=== PATIENT | female | born 1980 | race Caucasian/White ===

== ENCOUNTER 2016-08-25 21:25 | Outpatient (CLI) | payer MEDICAID ==
[2016-08-25 21:47] LABS: URINE BILIRUBIN NEGATIVE (NEGATIVE); URINE BLOOD 1+ (NEGATIVE); URINE GLUCOSE (UA) NEGATIVE (NEGATIVE); URINE LEUKOCYTE ESTERASE NEGATIVE (NEGATIVE); URINE NITRITE NEGATIVE (NEGATIVE); URINE PROTEIN NEGATIVE (NEGATIVE); URINE UROBILINOGEN NORMAL (0-1 mg/dl)
[2016-08-25 21:49] LABS: URINE APPEARANCE CLEAR; URINE COLOR DARK YELLOW
[2016-08-25 21:50] VITALS: BMI 27.6
[2016-08-25 22:02] LABS: URINE BACTERIA FEW; URINE CRYSTALS 15-20 /hpf; URINE RBC 0-2 /hpf; URINE WBC NEG /hpf
[2016-08-25] MEDS ORDERED: IV START KIT ONE (22:28)
[2016-08-25] MEDS ORDERED: LACTATED RINGERS 1,000 ML ONE (22:29)
[2016-08-25] MEDS ORDERED: LACTATED RINGERS 1,000 ML IV SCH (22:30)
--- NOTE | 2016-08-25 23:16 | PDOC36 ---
Provider Note Note: SUBJECTIVE: 36 yo at 33 3/7 weeks gestation who has been hansa for the past 2 weeks. Contractions are mild to moderate and are between 2-10 minutes apart. She was seen on 08/20/[address] [facility] and noted to have a negative fibronectin and yeast on a wet prep. She has used OTC monistat since then. OBJECTIVE: VS: 104/66, 97.1F, 59 bpm FHT: 130s, moderate variability, positive accels, negative decels, category I [place]: Contractions every 3-10 minutes SVE: C/T/H LABS: Fibronectin: Negative Wet Prep: Negative ASSESSMENT: 36 yo at 33 3/7 weeks with contractions and negative labs. PLAN: Labs were negative, patient appeared to be a little dehydrated on her UA and was given 1 liter of LR which helped her feel a little better. Contractions improved and she was sent home with routine precautions. FU at her next routine apt.
== END 2016-08-25 23:46 | disposition home or self-care (01) ==
LOC: FBC 21:25 → FBCOUT 21:25
PROVIDERS: ATTEND Family Medicine
DX: O47.03 False labor before 37 completed weeks of gestation, third trimester (principal); O26.893 Other specified pregnancy related conditions, third trimester; E86.0 Dehydration; Z3A.33 33 weeks gestation of pregnancy; O09.523 Supervision of elderly multigravida, third trimester
CPT/HCPCS: 96360; 82731; 81001; 87210; 59025; J7120; G0463

== ENCOUNTER 2016-09-28 20:26 | Outpatient (CLI) | payer MEDICAID ==
[2016-09-28 20:46] VITALS: BMI 27.2
== END 2016-09-28 23:12 | disposition home or self-care (01) ==
LOC: FBC 20:26 → FBCOUT 20:26
PROVIDERS: ATTEND Family Medicine
DX: O36.8190 Decreased fetal movements, unspecified trimester, not applicable or unspecified (principal); O47.9 False labor, unspecified; O09.529 Supervision of elderly multigravida, unspecified trimester; Z3A.00 Weeks of gestation of pregnancy not specified
CPT/HCPCS: 59025; G0463

== ENCOUNTER 2016-10-07 22:27 | Inpatient (IN) | payer MEDICAID ==
[2016-10-07 22:48] VITALS: BMI 29.0
[2016-10-07] MEDS ORDERED: LACTATED RINGERS 1,000 ML IV PRN (23:09)
[2016-10-07] MEDS ORDERED: OXYTOCIN IN NS 334 ML IV PRN (23:09)
[2016-10-07] MEDS ORDERED: OXYTOCIN 10 UNITS/ML VIAL ONE (23:10)
[2016-10-07] MEDS ORDERED: IV START KIT ONE (23:11)
[2016-10-07] MEDS ORDERED: LIDOCAINE 1% (PRES FREE) 30 ML VIAL ONE (23:11)
[2016-10-07] MEDS ORDERED: MINERAL OIL 25 ML BOT ONE (23:11)
[2016-10-07] MEDS ORDERED: LIDOCAINE Viscous 2% 15 ML UDCUP ONE (23:11)
[2016-10-07] MEDS ORDERED: PUMP TUBING ONE (23:11)
[2016-10-08] MEDS ORDERED: MINERAL OIL 25 ML BOT TP ONE (00:44)
[2016-10-08] MEDS ORDERED: LIDOCAINE 1% (PRES FREE) 30 ML VIAL SUB-Q ONE (00:44)
[2016-10-08] MEDS ORDERED: LANOLIN 50 APPLIC/7G TUBE TP PRN (00:53)
[2016-10-08] MEDS ORDERED: LACTATED RINGERS 1,000 ML IV PRN (00:53)
[2016-10-08] MEDS ORDERED: HYDROCODONE/ACETAMINOPHEN 5/325MG TABLET PO PRN (00:53)
[2016-10-08] MEDS ORDERED: BENZOCAINE/MENTHOL 60 APPLIC/BOT TP PRN (00:53)
--- NOTE | 2016-10-08 00:59 | PCMAN ---
OB Admission Note - History : 3 Term: 2 : 0 Abortions (S&E): 0 Livin Gestational Age (weeks): 39 Days (#/7): 4 Admit Cervical Dilation:: 4 Admit Cervical Effacement (%):: 80 Admit Station:: -2 Admit Presentaton:: vertex Membrane Status: Ruptured Contractions: Yes Contraction Frequency:: 2-3 min Heart Rate:: 140 Status:: cat 1 EFW:: 7 lbs Summary of Course:: GDM, diet controlled, AMA uterine fibroids She did not have an amnio.but neg NIPT aliyah PMH: none meds: PNV SH: no tobacco, etoh or drugs PSH: none 3.5 kg XSVD 12/25 2.7 kg , elevated BP - Labs Blood Type: O (+) positive Hct/Hgb:: Rubella Status: Immune GBS Status: Negative Abnormal Labs: None - Physical Exam Psych/Mental Status: Mood/Affect Appropriate Neurological: Alert Lungs: Clear to Auscultation Bilaterally Cardiovascular: Regular Rate and Rhythm Abdomen: Normal Bowel Sounds Rectal Exam: Deferred Extremities: Other (nt, no edema) Skin: Normal Color - Problems (1) Term Status: Acute Code: Z34.80Assessment/Plan: active labor, expectant management (2) Gestational diabetes Status: Acute Code: O24.419Assessment/Plan: diet controlled.
[2016-10-08] MEDS: IBUPROFEN 800 MG TABLET PO PRN ×4 (03:06→21:53)
[2016-10-09 06:21] LABS: HEMATOCRIT 37.4 % (37.0-47.0); HEMOGLOBIN 12.6 gm/l (12.0-16.0)
--- NOTE | 2016-10-09 07:51 | PDOC39B ---
Hospital Course: ADMIT DATE: 10/07/16 DISCHARGE DATE: 10/08/16 ADMISSION DIAGNOSES: IUP at 39 4/7 weeks GDM Active labor PROCEDURES: HISTORY OF PRESENT ILLNESS: 36 year old G3 T2 L2 at 39 weeks 4 days presenting in active labor. HOSPITAL COURSE: The patient delivered via without complications. Her post recovery was unremarkable. By day of discharge the patient is ambulating , eating, voiding, and passing flatus without difficulty. Pain is controlled and lochia is appropriate. She is breast feeding well. Good maternal bonding. - Physical Exam Vital Signs: Temp Pulse Resp BP Pulse Ox 99.1 F 61 16 127/68 10/09/16 07:30 10/09/16 07:30 10/09/16 07:30 10/09/16 07:30 General: Afebrile, No Acute Distress Neurological: Alert, Oriented x 4 Lungs: Clear to Auscultation Bilaterally Cardiovascular: Regular Rate and Rhythm Fundus: Firm, Midline Extremities: Full ROM, No Edema Skin: Normal Color, Warm, Dry, Intact, No Rash - Discharge Diagnosis (1) Gestational diabetes Status: AcuteAssessment/Plan: diet controlled.2 hr glucose challenge PP (2) (normal spontaneous vaginal delivery) Status: Acute - Discharge Plan Condition: Good Disposition: Home Prescriptions: Ibuprofen [IBUPROFEN 800 MG TABLET (SHF)] 800 mg PO Q6H PRN #60 PRN Reason: Pain (Mild) Lanolin [LANOLIN 7 G TUBE (SHF)] 1 applic TP PRN PRN #10 PRN Reason: Sore Nipples Follow-Up: Екатерина May PA [Primary Care Provider] - In 6 weeks
[2016-10-09 16:46] VITALS: BP 126/75
== END 2016-10-09 19:20 | disposition home or self-care (01) | DRG 775 ==
LOC: FBCOUT 22:27 → FBC 22:27 → FBCOUT 23:09
PROVIDERS: ADMIT Family Medicine; ATTEND Family Medicine
PROC: 10E0XZZ Delivery of Products of Conception, External Approach (ICD-10-PCS; principal; 2016-10-08)
DX: O24.420 Gestational diabetes mellitus in childbirth, diet controlled (principal); O09.523 Supervision of elderly multigravida, third trimester; Z3A.39 39 weeks gestation of pregnancy; Z37.0 Single live birth; O09.513 Supervision of elderly primigravida, third trimester

== ENCOUNTER 2016-10-12 13:53 | Outpatient (CLI) | payer MEDICAID | END 2016-10-12 13:54 | disposition home or self-care (01) | LOC: BABIESSH 13:53 | PROVIDERS: ATTEND Family Medicine | DX: Z39.1 Encounter for care and examination of lactating mother (principal) ==

== ENCOUNTER 2016-10-26 10:37 | Outpatient (CLI) | payer MEDICAID | END 2016-10-26 10:38 | disposition home or self-care (01) | LOC: BABIESSH 10:37 | PROVIDERS: ATTEND Family Medicine | DX: Z39.1 Encounter for care and examination of lactating mother (principal) ==